=== PATIENT | male | born 1945 | race Caucasian/White ===

== ENCOUNTER 2019-12-19 12:30 | Outpatient (CLI) | payer MEDICARE, OTHER, SELFPAY ==
--- NOTE | 2019-12-19 12:44 | XR_ITS ---
WS: [id number] XR knee RT 3V* [id number] REASON FOR EXAM: RT KNEE PAIN FINDINGS: The meniscal spaces are normal bilaterally. The patella shows mild spurring. There is a bipartite patella present. The patella tibial space is well maintained. The patella tibial articulation normal. There is arteriosclerotic changes of the popliteal arteries. XR/XR knee RT 3V* [id number] IMPRESSION: Small bipartite patella. Degenerate changes off the patella. Heavy arteriosclerotic changes of the popliteal arteries.
== END 2019-12-19 12:31 | disposition home or self-care (01) ==
LOC: RAD 12:37
PROVIDERS: Family Provider Family Medicine; PCP Family Medicine; Visit Provider Orthopaedic Surgery
DX: M17.11 Unilateral primary osteoarthritis, right knee (principal); I70.201 Unspecified atherosclerosis of native arteries of extremities, right leg; Q74.1 Congenital malformation of knee; M25.561 Pain in right knee
CPT/HCPCS: 73562

== ENCOUNTER 2020-03-11 06:08 | Day surgery (SDC) | payer MEDICARE, OTHER, SELFPAY ==
[2020-03-07 09:13] VITALS: BMI 43.4
--- NOTE | 2020-03-07 09:20 | ECG_ITS ---
Measurements Intervals [place] Rate: 71 P: PA: 0 QRS: 5 QRSD: 84 T: 48 QT: 360 QTc: 391 ATRIAL FIBRILLATION LOW QRS VOLTAGE IN PRECORDIAL LEADS [QRS DEFLECTION < 1.0 mV IN CHEST LEADS] Compared to ECG 10/30/2018 09:37:34 Low QRS voltage now present Electronically Signed On 03-07-2020 18:31:24 CDT by Trina Astorga M.D. [email or web address]
--- NOTE | 2020-03-07 09:43 | P.ANESASSM_ITS ---
Pre-Anesthetic Assessment Pre-Anesthetic Assessment: Height/Weight: Height 1.75 m Weight 133.356 kg Preop Diagnosis: Bleeding per rectum Proposed Procedure: Operation Date: 03/11/20 07:00 Proposed Procedures p EGD/COLONOSCOPY [id number] 16584 35290 K21.9 Z86.010 K64.9(Not Applicable) - Magen Souza MD s Colonoscopy(Not Applicable) - MD ofelia Herron Exam Under Anesthesia(Not Applicable) - Magen Souza MD s Hemorroidectomy(Not Applicable) - Magen Souza MD Familial anesthetic complications: versed made me climb the artis Social: Social History: No alcohol and No tobacco Exam: Pre-Anes Outpt Exam: alert, oriented x 3, clear to auscultation bilaterally and regular rate & rhythm Airway: Cervical ROM: WNL MP: 4 Dentition: Full Pulmonary: Pulmonary: None reported CV/HEM: CV/HEM: Afib (on xarelto) and HTN : Comments: Patient has been retaining fluid Metabolic: Metabolic: Morbid obesity Anesthetic Plan: ASA status: 2 Anesthesia: General Risk of > 500 ml blood loss (7ml/kg in children): No PFSH Anesthesia PFSH: Medical History A-fib Hyperlipidemia Hypertension Seasonal allergies Surgical History History of appendectomy History of colonoscopy with polypectomy History of rotator cuff surgery Family History (Updated 02/27/20 @ 13:39 by Xochitl Harris RN) Father Cancer colon cancer Brother Cancer colon cancer Denies family history of Anesthesia complication Bleeding disorder Social History Smoking and tobacco status: current some day smoker cigars Cigar details: very very rare Alcohol intake: never History of recent travel: No Data Anesthesia Cardiac Studies: No Data to Display
[2020-03-11 06:23] VITALS: BP 161/85; PULSE 84; RESP 16; TEMP 36.6; O2SAT 94
--- NOTE | 2020-03-11 06:37 | W.PM.OPSUD ---
Surgery/Procedure H&P Update DATE OF PROCEDURE: March 11, 2020 DATE H&P PERFORMED: 03/07/20 H&P UPDATE INFORMATION: I have reviewed H&P completed within last 30 days, I have examined patient prior to procedure and No changes to prior documentation PREOP DIAGNOSIS: Bleeding per rectum PRIMARY INDICATION FOR PROCEDURE: The same PLANNED PROCEDURE: Operation Date: 03/11/20 07:45 Proposed Procedures p EGD/COLONOSCOPY 34833 31094 86437 09000 K21.9 Z86.010 K64.9(Not Applicable) - Magen Souza MD s Colonoscopy(Not Applicable) - Magen Souza MD s Exam Under Anesthesia(Not Applicable) - Magen Souza MD s Hemorroidectomy(Not Applicable) - Magen Souza MD
[2020-03-11] MEDS: sodium chloride 0.9% 1,000 ML 30 ML IV (06:54)
--- NOTE | 2020-03-11 07:16 | SUR.OPER ---
clip placed at bx site in the esophageal body
[2020-03-11] MEDS: ceFOXitin 2,000 MG in sodium chloride 0.9% (plus) 50 ML 100 MG IV (07:20)
--- NOTE | 2020-03-11 08:30 | P.OP_ITS ---
Operative Report Date of procedure: March 11, 2020 Pre-op Diagnosis: Bleeding per rectum Post-op diagnosis: other (Proximal gastritis and multiple gastric polyps) Post-op Findings: Proximal gastritis and multiple gastric polyps Anterolateral anal polyp(polypoidal lesion measures about 2 x 4 cm) Left lower lateral hemorrhoid Procedure Done: Diagnostic EGD with biopsy Colonoscopy with biopsy Examination under anesthesia and left lower lateral hemorrhoidectomy Specimens removed/disposition: Gastric polyps Anal polypoidal mass Left lower lateral hemorrhoid Surgeon: Magen Souza Cafeteria Aide: Surgical techs A[facility] surgery and GI Baldomero chief ophthalmic technician Circulating nurses [facility] surgery/[facility] GI Anesthesia: General (leave manager Emelina) Estimated blood loss (mL): 10 Condition: stable Disposition: same day Procedure: Patient was identified in the holding area, was taken to the OR placed first in supine position, timeout was done verifying the patient's name, date of , and procedure, all were in agreement. Patient was then intubated by the anesthesia provider, patient was placed in left lateral position after a bite block was placed in the mouth,all pressure points were padded, started by introducing the EGD via the mouth under direct visualization, the patient was continuously monitored via property insurance claims examiner, I was able to assess the esophagus stomach and duodenum till the second part, mild GERD was noticed at the GE junction. GE junction at 40 cm from the incisors, multiple proximal gastric polyps were noticed and biopsy was done using hot snare and hot biopsy forceps, gastritis was noticed as well in the same region, the rest of the examination all the way to the second part of the duodenum was unremarkable. I elected to use carbon dioxide The scope was retrieved under direct visualization and gas was deflated. Following that a digital rectal examination was done that showed a prominent left lower lateral hemorrhoid and a smaller right lower lateral hemorrhoid, the colonoscopy was then introduced via the anus under direct visualization, all the way to the cecum, prep of the colon was appropriate, there were no polyps identified or masses or diverticular disease or strictures except at the anal lesion anteriorly was found to have polypoidal mass that hot snare was applied to remove it, the scope was then retrieved back ,time for withdrawal exceeded 10 minutes, gas was deflated on the way out. Retroflex was done at the end showing no abnormalities of the anal canal other than mentioned above. Attention was deviated to the examination under anesthesia, prep and drape of the perianal area was done under the usual sterile technique Anoscope was then introduced I was able to identify the internal and external left lower lateral hemorrhoid and a smaller right lower lateral , I placed a wet 4 x 4 inside the anal canal to prevent stools from encroaching on the wound site, that was taken out at the end of the procedure. I did apply a hemostat at the origin of the hemorrhoidal tissue, onto the left lower lateral hemorrhoid,using harmonic scalpel device for dissection safeguarding the external anal sphincter after that I was able to deliver the specimen to the circulating nurse hemostasis was achieved , and running 2-0 chromic catgut suture was applied to approximate the edges of the hemorrh oidectomy sites, that was done after thorough irrigation of the wound with warm normal saline. At that point after removal of the 4 x 4'sx1, I noticed at this point that there is residual remnants of the polypoidal mass that I had to excise more using the harmonic scalpel, following by that it was not feasible to apply sutures for hemostasis so I elected to perform a flex sigmoidoscopy using the colonoscopy and hemostasis was achieved using electrocautery and an Endo Clip resolution x1 was applied.Suction irrigation was performed I applied a piece of Xeroform impregnated w lidocaine 2% jelly at the site of the wound and a piece of Surgicel both were rolled up as a Cigar like and and 2- 0 silk stitch was applied at the end that faces the exit of the anus as it will be easier to pull out later on, followed by 4 x 4 application and ABD .,a surgical pants was then placed to hold the dressing in place. Count was completed at the end of the procedure, patient was then extubated and was taken to the recovery room in stable condition. Patient tolerated the procedure I was present for the whole entire procedure
[2020-03-11 08:44] VITALS: BP 182/89; PULSE 90; RESP 16; TEMP 36.1; O2SAT 94
[2020-03-11 08:50] VITALS: BP 197/97; PULSE 85; RESP 20; O2SAT 95
[2020-03-11 08:55] VITALS: BP 142/80; PULSE 90; RESP 18; TEMP 36.2; O2SAT 90
[2020-03-11 09:00] VITALS: BP 135/88; PULSE 88; RESP 15; TEMP 36.2; O2SAT 94
[2020-03-11 09:15] VITALS: BP 155/89; PULSE 85; RESP 16; TEMP 36.6; O2SAT 93
--- NOTE | 2020-03-11 09:30 | SUR.PHASEII ---
904 Patient back from pacu and requesting to get to go to bathroom to have a bowel movement and to urinate,assisted up to bedside commode with help of pacu nurse,,call light at bedside and encouraged to call as needed,pt moaning and states that he is having stomach cramps and refusing pain rx at present 929 patient remains on bedside commode and refusing any drink or assistance
== END 2020-03-11 10:35 | disposition home or self-care (01) ==
PROVIDERS: PCP Family Medicine; Visit Provider Surgery
PROC: 0DJ08ZZ Inspection of Upper Intestinal Tract, Via Natural or Artificial Opening Endoscopic (ICD-10-PCS; CPT 43235; principal; 2020-03-11 07:45)
PROC: 0DJD8ZZ Inspection of Lower Intestinal Tract, Via Natural or Artificial Opening Endoscopic (ICD-10-PCS; CPT 45378; 2020-03-11 07:45)
PROC: (CPT 46250; 2020-03-11 07:45)
PROC: (CPT 46250; 2020-03-11 07:45)
DX: K62.5 Hemorrhage of anus and rectum (principal); K29.70 Gastritis, unspecified, without bleeding; K31.7 Polyp of stomach and duodenum; K64.4 Residual hemorrhoidal skin tags; I48.91 Unspecified atrial fibrillation; I10 Essential (primary) hypertension; E66.01 Morbid (severe) obesity due to excess calories; Z68.41 Body mass index [BMI] 40.0-44.9, adult; Z79.01 Long term (current) use of anticoagulants; E78.5 Hyperlipidemia, unspecified
CPT/HCPCS: 46250; 12345; 43251; 45385; 88304; 88305; 93005; 96365; C9290; J0131; J0330; J0694; J1100; J2001; J2370; J2405; J2704; J3010; J3490; J7030

== ENCOUNTER 2020-03-12 07:46 | Outpatient (CLI) | payer MEDICARE, OTHER, SELFPAY ==
--- NOTE | 2020-03-12 07:53 | USCV_ITS ---
JulioLou brownn Age: 75 Gender: M : 1945 Exam Date: 03/12/2020 08:04 Ordering Phys: Idris Ma MD Technologist: Jourdan Luna Exam Location: [facility] [place] Indication: EDEMA, ATRIAL FIBRILATION, ESSENTIAL HYPERTENSION BP: / HR: 97 Rhythm: Atrial fibrillation Technical Quality: Poor MEASUREMENTS (Male / Female) Normal Values 2D ECHO LV Diastolic Diameter PLAX 3.3 cm 4.2 - 5.9 / 3.9 - 5.3 cm LV Systolic Diameter PLAX 2.8 cm IVS Diastolic Thickness 1.4 cm 0.6 - 1.0 / 0.6 - 0.9 cm IVS Systolic Thickness 1.7 cm LVPW Diastolic Thickness 1.3 cm 0.6 - 1.0 / 0.6 - 0.9 cm LVPW Systolic Thickness 1.6 cm LVOT Diameter 2.1 cm LV Ejection Fraction 2D Teich 32.8 % LV Ejection Fraction MOD 2C 70.1 % LV Ejection Fraction 2C AL 69.9 % LA Diameter 5.4 cm LA Width 5.6 cm LA Height 6.4 cm RA Width 4.2 cm RA Height 5.9 cm M-MODE LV Diastolic Diameter MM 5.2 cm 4.2 - 5.9 / 3.9 - 5.3 cm LV Systolic Diameter MM 2.9 cm LV Ejection Fraction MM Teich 74.5 % IVS Diastolic Thickness MM 1.2 cm 0.6 - 1.0 / 0.6 - 0.9 cm IVS Systolic Thickness MM 2.1 cm LVPW Diastolic Thickness MM 1.2 cm 0.6 - 1.0 / 0.6 - 0.9 cm LVPW Systolic Thickness MM 1.8 cm RV Diastolic Diameter MM 1.7 cm Aortic Annulus Diameter 4.2 cm LA Ao Ratio MM 1.3 MV E Point Septal Separation 0.6 cm DOPPLER AV Peak Velocity 118.0 cm/s LVOT Peak Velocity 94.0 cm/s AV Area Cont Eq vti 3.0 cm squared AV Area Cont Eq pk 2.8 cm squared MV Area PHT 5.0 cm squared Mitral E to A Ratio 2.8 MV E' Velocity 15.0 cm/s Mitral E to MV E' Ratio 9.9 Mitral E to LV E' Lateral Ratio 7.4 Mitral E to LV E' Septal Ratio 14.8 TR Peak Velocity 228.0 cm/s TR Peak Gradient 20.9 mmHg TV Peak E Velocity 129.0 cm/s Right Atrial Pressure 3.0 mmHg Pulmonary Artery Systolic Pressu 23.8 mmHg PV Peak Velocity 87.0 cm/s FINDINGS Left Ventricle Left ventricular cavity not well visualized. Normal left ventricular size, systolic function and wall thickness, with no regional wall motion abnormalities. Rhythm precludes evaluation of diastolic function. Left ventricular ejection fraction is estimated at 60 %. Right Ventricle Normal right ventricular size and systolic function. Normal right ventricular systolic pressure. Right Atrium Mildly increased right atrial size. Left Atrium Mildly increased left atrial size. Mitral Valve Mitral valve not well visualized. Structurally normal mitral valve. Mild mitral valve regurgitation. Aortic Valve Aortic valve not well visualized. No aortic valve regurgitation. No aortic valve stenosis. Tricuspid Valve Structurally normal tricuspid valve. Tricuspid valve not well visualized. Trace tricuspid valve regurgitation. Pulmonic Valve Pulmonic valve not well visualized. Pericardium Normal pericardium without effusion. Aorta Normal ascending aorta dimension. CONCLUSIONS Left ventricular cavity not well visualized. Normal left ventricular size, systolic function and wall thickness, with no regional wall motion abnormalities. Rhythm precludes evaluation of diastolic function. Left ventricular ejection fraction is estimated at 60 %. Mildly increased right atrial size. Mildly increased left atrial size. Mitral valve not well visualized. Structurally normal mitral valve. Mild mitral valve regurgitation. From the previous echo dictated 02/21/2014, there has been no change. Dr. Saravanan Carroll MD (Electronically Signed) Final Date: 12 Mar 2020 09:28 S
== END 2020-03-12 07:47 | disposition home or self-care (01) ==
LOC: RAD 07:50
PROVIDERS: PCP Family Medicine; Visit Provider Family Medicine
DX: R60.9 Edema, unspecified (principal); I10 Essential (primary) hypertension; I48.91 Unspecified atrial fibrillation; I34.0 Nonrheumatic mitral (valve) insufficiency
CPT/HCPCS: 93306

== ENCOUNTER 2020-03-13 13:50 | Outpatient (CLI) | payer MEDICARE, OTHER, SELFPAY ==
--- NOTE | 2020-03-13 13:56 | CT_ITS ---
WS: [id number] CT CHEST TECHNIQUE: Noncontrast CT of the chest with coronal and sagittal reformatted images. CLINICAL INFORMATION: EDEMA, ATRIAL FIBRILATION, ESSENTIAL HYPERTENSION COMPARISON: None. DLP: 1117.[address] scans at [facility] use at least one of these dose optimization techniques: automat ed exposure control; mA and/or kV adjustment per patient size (includes targeted exams where dose is matched to clinical indication); or iterative reconstruction. FINDINGS: Mild chronic emphysematous changes. No acute pulmonary infiltrates. Slight hazy subsegmental atelecta sis in the right lower lobe. No consolidation or pleural fluid. No other suspicious pulmonary parench ymal abnormalities. Mild aortic calcification. Coronary calcification. No mediastinal or hilar lymphadenopathy. No axilla ry lymphadenopathy. Small low-attenuation lesion right adrenal gland most likely benign adenoma measu ring 11 mm. Left adrenal gland is normal. Vascular calcification. Normal GE junction. Multiple partia lly evaluated hepatic cysts the largest in the dome the liver measuring 2.2 CM. Small gallstones in t he gallbladder extending to the gallbladder neck. Gallbladder can be further evaluated with ultrasoun d. No visualized gallbladder wall thickening or fluid. Moderate spondylitic changes thoracic spine with mild thoracic curve. Compression fracture L1 vertebr al body with anterior wedging and prior vertebroplasty changes. Mild chronic retropulsion of the pos terior superior cortex with mild central canal stenosis. CT/CT chest wo con [id number] IMPRESSION: 1. Mild chronic emphysematous changes. No acute pulmonary infiltrates. 2. Subsegmental atelectasis in right lower lobe along the fissure. 3. No pleural fluid. 4. No mediastinal or hilar lymphadenopathy. 5. Vascular calcification including coronary. 6. Cholelithiasis with gallstones extend to the gallbladder neck. Recommend fu rther evaluation with ultrasound. 7. Partially visualized low-attenuation lesions in the liver some too small to characterize but most consistent with hepatic cysts. 8. Incidental 11 mm adrenal adenoma.
== END 2020-03-13 13:51 | disposition home or self-care (01) ==
LOC: RADWPI 13:54
PROVIDERS: PCP Family Medicine; Visit Provider Family Medicine
DX: R60.9 Edema, unspecified (principal); I10 Essential (primary) hypertension; J43.8 Other emphysema; J98.11 Atelectasis; I25.10 Atherosclerotic heart disease of native coronary artery without angina pectoris; K80.20 Calculus of gallbladder without cholecystitis without obstruction; D35.01 Benign neoplasm of right adrenal gland; I48.91 Unspecified atrial fibrillation
CPT/HCPCS: 71250

== ENCOUNTER 2020-09-15 10:32 | Outpatient (CLI) | payer MEDICARE, OTHER, SELFPAY ==
--- NOTE | 2020-09-15 10:50 | ECG_ITS ---
[facility] Test Date: 2020-09-15 Pat Name: Orin Elliott Department: Room: Gender: Male Roll Weigher: Naomy Majano : 1945 Requested By: Idris Saul Order Number: [id number] Maye MD: Beto Nowak M.D. Interpretive Statements NAME OF STUDY: LEXISCAN SESTAMIBI STRESS TEST INDICATION: [Chest Pain, ] Procedure: The baseline blood pressure was 124/92 mmHg with a heart rate of 72 bpm. The electrocardiogram showed atrial fibrillation with nonspecific ST-T wave changes. The Lexiscan was infused for a duration of 20 seconds. A total of 0.4 mg of Lexiscan was infused. The stress phase was continued for a total of 5 minutes. Heart rate at end of stress phase was 81 bpm, with a blood pressure 158/95 mmHg. The EKG at the peak infusion revealed atrial fibrillation with no significant ST-T wave changes. Sestamibi was injected 20 seconds after Lexiscan infusion. Blood pressure at the end of recovery phase was 139/89 mmHg with a heart rate of 83 bpm. No significant new EKG changes during recovery phase. Conclusion: 1. Normal EKG response to Lexiscan infusion. 2. No Lexiscan induced chest pain or cardiac arrhythmia. 3. Normal blood pressure and heart rate response. 4. Sestamibi/sestamibi perfusion scan pending; see separate report. Electronically Signed On 09-18-2020 19:07:42 FORESTRY SUPPORT SPECIALIST by Beto Nowak M.D. [email or web address]
[2020-09-15 10:51] VITALS: BMI 43.5
--- NOTE | 2020-09-15 10:51 | NMCV_ITS ---
NM jacques perf SPECT r/s* [id number] Orin Elliott Age: 75 Gender: M : 1945 Exam Date: 09/15/2020 11:31 Ordering Phys: Idris Ma MD Technologist: LANDON Goldsmith Exam Location: [facility] Indications: CHEST PAIN STRESS TEST [facility] IMAGE PROTOCOL Rest/Stress 1 Lexiscan Day Radiopharmaceutical Dose (mCi) Administration Site Administered by Rest: Tc-99m 11.0 IV LANDON Goldsmith Sestamibi Stress:Tc-99m 33.0 IV LANDON Mckeon Sestamibi Rest: 15-Sep-2020 60 Discovery 630 Stress: 15-Sep-2020 30 Discovery 630 0.4mg Lexiscan. Supine position only as patient was unable to lay prone. SPECT RESULTS Technical Quality: Excellent Raw Data Analysis: Normal Image Corrections: No attenuation or motion correction applied Summed Stress Score: 0 Summed Rest Score: 0 Summed Difference Score: 0 PERFUSION FINDINGS Normal myocardial perfusion with no evidence of ischemia. FUNCTIONAL RESULTS (calculated via Gated SPECT) Stress Image LV EF (%): 72 Stress EDV (mL):107 TID: 1.07 Stress ESV (mL):30 FUNCTIONAL FINDINGS: There is normal left ventricular systolic function. IMPRESSIONS 1. Myocardial perfusion imaging is normal without evidence of ischemia. 2. LV systolic function is normal with EF of 72%. Beto Nowak MD (Electronically Signed) Final Date: 16 September 2020 10:28 S
[2020-09-15 12:27] VITALS: BP 142/93; PULSE 80
[2020-09-15] MEDS: regadenoson 0.4 Mg/5 ml Syringe IVP (12:27)
== END 2020-09-15 10:33 | disposition home or self-care (01) ==
LOC: RAD 10:36
PROVIDERS: PCP Family Medicine; Visit Provider Family Medicine
DX: R07.9 Chest pain, unspecified (principal); I10 Essential (primary) hypertension
CPT/HCPCS: 78452; 93017; A9500; J2785

== ENCOUNTER → 2020-09-25 12:32 | Outpatient (BNVA) | payer MEDICARE, OTHER, SELFPAY | PROVIDERS: PCP Family Medicine; Referring Provider Family Medicine; Visit Provider Anesthesiology Pain Medicine | DX: M54.9 Dorsalgia, unspecified (principal); M54.16 Radiculopathy, lumbar region; M51.36 Other intervertebral disc degeneration, lumbar region; M54.2 Cervicalgia | CPT/HCPCS: 99205 ==

== ENCOUNTER → 2020-10-01 13:01 | Outpatient (BNVA) | payer MEDICARE, OTHER, SELFPAY | PROVIDERS: PCP Family Medicine; Visit Provider Anesthesiology Pain Medicine | DX: M47.816 Spondylosis without myelopathy or radiculopathy, lumbar region (principal); M54.9 Dorsalgia, unspecified | CPT/HCPCS: 64635; 64636; J1030 ==

== ENCOUNTER → 2020-10-14 12:45 | Outpatient (BNVA) | payer MEDICARE, OTHER, SELFPAY | PROVIDERS: PCP Family Medicine; Visit Provider Anesthesiology Pain Medicine | DX: M47.816 Spondylosis without myelopathy or radiculopathy, lumbar region (principal); M54.9 Dorsalgia, unspecified | CPT/HCPCS: 64635; 64636; J1030 ==

== ENCOUNTER → 2020-10-29 13:20 | Outpatient (BNVA) | payer MEDICARE, OTHER, SELFPAY | PROVIDERS: PCP Family Medicine; Visit Provider Anesthesiology Pain Medicine | DX: M54.9 Dorsalgia, unspecified (principal); M54.16 Radiculopathy, lumbar region; M51.36 Other intervertebral disc degeneration, lumbar region; M54.2 Cervicalgia | CPT/HCPCS: 99213; 99214 ==

== ENCOUNTER → 2020-12-30 12:46 | Outpatient (BNVA) | payer MEDICARE, OTHER, SELFPAY | PROVIDERS: PCP Family Medicine; Visit Provider Anesthesiology Pain Medicine | DX: M47.812 Spondylosis without myelopathy or radiculopathy, cervical region (principal) | CPT/HCPCS: 64490; 64491; 64492; J3490 ==

== ENCOUNTER → 2021-01-13 08:52 | Outpatient (BNVA) | payer MEDICARE, OTHER, SELFPAY | PROVIDERS: PCP Family Medicine; Visit Provider Anesthesiology Pain Medicine | DX: G89.29 Other chronic pain (principal); M54.2 Cervicalgia; M54.9 Dorsalgia, unspecified; M54.16 Radiculopathy, lumbar region; M51.36 Other intervertebral disc degeneration, lumbar region; M25.511 Pain in right shoulder | CPT/HCPCS: 99214 ==

== ENCOUNTER → 2021-07-23 09:45 | Outpatient (BNVA) | payer MEDICARE, OTHER, SELFPAY | PROVIDERS: PCP Family Medicine; Visit Provider Anesthesiology Pain Medicine | DX: G89.29 Other chronic pain (principal); M54.16 Radiculopathy, lumbar region; M51.36 Other intervertebral disc degeneration, lumbar region; M54.2 Cervicalgia; R20.2 Paresthesia of skin; I10 Essential (primary) hypertension; Z87.891 Personal history of nicotine dependence | CPT/HCPCS: 99214 ==

== ENCOUNTER → 2021-09-02 10:19 | Outpatient (BNVA) | payer MEDICARE, OTHER, SELFPAY | PROVIDERS: PCP Family Medicine; Visit Provider Anesthesiology Pain Medicine | DX: M48.062 Spinal stenosis, lumbar region with neurogenic claudication (principal); M54.16 Radiculopathy, lumbar region; M51.36 Other intervertebral disc degeneration, lumbar region; M48.02 Spinal stenosis, cervical region; M47.812 Spondylosis without myelopathy or radiculopathy, cervical region; Z87.891 Personal history of nicotine dependence | CPT/HCPCS: 99214 ==

== ENCOUNTER → 2021-09-29 09:22 | Outpatient (BNVA) | payer MEDICARE, OTHER, SELFPAY | PROVIDERS: PCP Family Medicine; Referring Provider Anesthesiology Pain Medicine; Visit Provider Physician Assistant | DX: M54.16 Radiculopathy, lumbar region (principal) | CPT/HCPCS: 72110 ==

== ENCOUNTER → 2021-10-19 12:19 | Outpatient (BNVA) | payer MEDICARE, OTHER, SELFPAY | PROVIDERS: PCP Family Medicine; Visit Provider Anesthesiology Pain Medicine | DX: M47.816 Spondylosis without myelopathy or radiculopathy, lumbar region (principal) | CPT/HCPCS: 64635; 64636; J1030 ==

== ENCOUNTER → 2021-10-29 09:39 | Outpatient (BNVA) | payer MEDICARE, OTHER, SELFPAY | PROVIDERS: PCP Family Medicine; Visit Provider Anesthesiology Pain Medicine | DX: G89.29 Other chronic pain (principal); M79.18 Myalgia, other site; M48.062 Spinal stenosis, lumbar region with neurogenic claudication; M54.16 Radiculopathy, lumbar region; M51.36 Other intervertebral disc degeneration, lumbar region; M47.816 Spondylosis without myelopathy or radiculopathy, lumbar region; M54.2 Cervicalgia | CPT/HCPCS: 20553; 99214; J1030; J3490 ==

== ENCOUNTER 2021-11-08 08:21 | Outpatient (CLI) | payer MEDICARE, OTHER, SELFPAY ==
[2021-11-08 08:40] VITALS: BP 150/102; PULSE 75; RESP 18; TEMP 36.5; O2SAT 97; BMI 42.0
[2021-11-08 09:18] VITALS: BP 149/94; PULSE 53; RESP 18; O2SAT 97
[2021-11-08 10:05] VITALS: BP 147/104; PULSE 63; RESP 18; TEMP 36.6; O2SAT 97
== END 2021-11-08 08:22 | disposition home or self-care (01) ==
PROVIDERS: PCP Family Medicine; Visit Provider Family Medicine
DX: U07.1 COVID-19 (principal)
CPT/HCPCS: 96365

== ENCOUNTER 2021-12-15 12:00 | Outpatient (CLI) | payer MEDICARE, OTHER, SELFPAY | END 2021-12-15 12:01 | disposition home or self-care (01) | LOC: SLEEP 12-16 09:50 | PROVIDERS: PCP Family Medicine; Visit Provider Family Medicine | DX: R40.0 Somnolence (principal); G47.33 Obstructive sleep apnea (adult) (pediatric) | CPT/HCPCS: G0399 ==

== ENCOUNTER → 2022-01-18 11:07 | Outpatient (BNVA) | payer MEDICARE, OTHER, SELFPAY | PROVIDERS: PCP Family Medicine; Visit Provider Anesthesiology Pain Medicine | DX: G89.29 Other chronic pain (principal); M47.812 Spondylosis without myelopathy or radiculopathy, cervical region; M48.062 Spinal stenosis, lumbar region with neurogenic claudication; M54.16 Radiculopathy, lumbar region; M51.36 Other intervertebral disc degeneration, lumbar region; M47.816 Spondylosis without myelopathy or radiculopathy, lumbar region; Z87.891 Personal history of nicotine dependence; Z79.891 Long term (current) use of opiate analgesic | CPT/HCPCS: 99214 ==

== ENCOUNTER → 2022-02-15 10:06 | Outpatient (BNVA) | payer MEDICARE, OTHER, SELFPAY | PROVIDERS: PCP Family Medicine; Visit Provider Anesthesiology Pain Medicine | DX: G89.29 Other chronic pain (principal); M48.062 Spinal stenosis, lumbar region with neurogenic claudication; M54.16 Radiculopathy, lumbar region; M51.36 Other intervertebral disc degeneration, lumbar region; M47.816 Spondylosis without myelopathy or radiculopathy, lumbar region; M54.2 Cervicalgia; M79.604 Pain in right leg; M79.605 Pain in left leg; Z79.891 Long term (current) use of opiate analgesic; Z87.891 Personal history of nicotine dependence | CPT/HCPCS: 99214 ==

== ENCOUNTER 2022-04-07 12:24 | Outpatient (CLI) | payer MEDICARE, OTHER, SELFPAY ==
--- NOTE | 2022-04-07 13:00 | MR_ITS ---
WS: [id number] MRI CERVICAL SPINE NONCONTRAST HISTORY: M54.12 - Radiculopathy, cervical region COMPARISON: 06/08/2019 Technique: Multiplanar, multisequence noncontrast imaging of the cervical spine. Mild increase in the cervical lordosis since the prior study. C3 retrolisthesis by 3 mm. Less than 2 mm anterolisthesis of C5. No fractures or marrow edema. Signal within the cervical cord is normal. Visualized posterior fossa is unremarkable. Craniocervical junction, C1 and C2 relationship, odontoid process and soft tissues are normal. C2-C3: Tiny central disc protrusion similar to the prior study. Mild bilateral foraminal narrowing du e to facet disease and osteophytes. C3-C4: Mild diffuse osteophytic ridging and disc bulge. Moderate bilateral facet joint arthritis. Mod erate LEFT and mild foraminal stenosis. No interval change. C4-C5: Mild disc bulging and facet arthritis. Mild bilateral facet joint arthritis resulting in mild LEFT foraminal stenosis. No change. C5-C6: Moderate diffuse annular disc bulging with ligamentum flavum and facet arthritis. Mild bilater al foraminal narrowing, RIGHT greater than LEFT is unchanged. C6-C7: Mild disc bulging with a central disc protrusion. Mild bilateral foraminal stenosis. Mild cent ral and bilateral foraminal stenosis. C7-T1: Mild annular disc bulge with a RIGHT paracentral disc protrusion. Mild osteophytic ridging. Mi ld narrowing of the LEFT foramen due to facet and osteophyte disease. Normal RIGHT foramen. Paraspinal soft tissues are negative. MR/MR cervical spin wo con* [id number] IMPRESSION: 1. Very similar appearance to the cervical spine and disc spaces since 06/08/20 19. No significant progression of stenoses. 2. Stable 3 mm retrolisthesis of C3. 3. Moderate LEFT and mild RIGHT foraminal stenosis at C3-4. 4. Mild central and bilateral foraminal stenosis at C6-7. 5. Mild LEFT foraminal stenosis at C4-5 and C7-T1. 6. Mild bilateral foraminal stenosis at C2-3.
== END 2022-04-07 12:25 | disposition home or self-care (01) ==
LOC: RAD 12:25
PROVIDERS: PCP Family Medicine; Visit Provider Anesthesiology Pain Medicine
DX: M54.12 Radiculopathy, cervical region (principal); M48.02 Spinal stenosis, cervical region; M48.062 Spinal stenosis, lumbar region with neurogenic claudication; M47.896 Other spondylosis, lumbar region
CPT/HCPCS: 72141; 72148

== ENCOUNTER 2022-04-07 12:24 | Outpatient (CLI) | payer MEDICARE, OTHER, SELFPAY ==
--- NOTE | 2022-04-07 13:45 | MR_ITS ---
WS: [id number] MRI LUMBAR SPINE NONCONTRAST HISTORY: M48.062 - Spinal stenosis, lumbar region with neurogenic ... COMPARISON: 04/16/2019 TECHNIQUE: Sagittal and axial multisequence imaging is submitted. Moderate degenerative LEFT curvature of the lumbar spine. L1 vertebroplasty with mild anterior compression. Moderate disc space narrowing at L2-3 and severe at L5-S1. L5 anterolisthesis by 6.4 mm similar to the prior exam. There is a small amount of reactive m arrow edema in the adjacent RIGHT lateral endplates of L3 and L4. No acute fractures. Conus terminates normally at L1-2 disc level. T12-L1: Mild annular disc bulging slightly greatest to the LEFT. Mild LEFT foraminal narrowing. Super ior posterior endplate of L1 is posteriorly displaced towards the LEFT lateral thecal sac and foramen . Very similar to the prior study with no progression of stenosis. Mild subarticular recess narrowing . L1-L2: Diffuse annular disc bulging with effacement of the ventral thecal sac. Bilateral subarticular recess narrowing is mild but greatest on the LEFT. Moderate LEFT foraminal stenosis and mild on the RIGHT. L2-L3: Diffuse osteophytic ridging and annular disc bulging encroaching upon the ventral thecal sac a nd subarticular recesses. Mild disc or osteophyte encroachment upon the traversing RIGHT L3 nerve rosy t. Mild central, bilateral subarticular recess and foraminal stenosis. Slightly greater stenosis on t he RIGHT. L3-L4: Diffuse mild annular disc bulge with facet and ligamentum flavum hypertrophy. Very minimal enc roachment into the subarticular recesses. Moderate RIGHT foraminal stenosis due to disc disease. Mild LEFT foraminal stenosis. L4-L5: Mild annular disc bulge with moderate ligamentum flavum hypertrophy and facet arthritis. Encro achment into the central canal by facet disease. Mild central and bilateral foraminal stenosis. Osteo phyte encroaching upon the exiting L4 nerve root does not appear quite as apparent on today's study a s on the prior study. L5-S1: L5 anterolisthesis with deformity of the thecal sac. No central stenosis. There is complete ef facement of fat in the LEFT foramen. Osteophyte and disc disease causing a severe LEFT foraminal sten osis and mild on the RIGHT. Marked bilateral facet joint arthritis. Paravertebral soft tissues negative for acute process. Mild atherosclerotic changes within the visual ized aorta. MR/MR lumbar spine wo con* [id number] IMPRESSION: 1. Advanced degenerative disc disease and facet arthritis throughout the lumba r spine with mild degenerative curvature to the LEFT of the lumbar spine. 2. Grade 1 anterolisthesis of L5 with severe disc space narrowing at L5-S1. 3. Prior vertebroplasty at L1. 4. No acute lumbar spine fracture. 5. Severe LEFT L5-S1 foraminal stenosis with marked encroachment upon the exit ing L5 nerve root. Similar to the prior study. Mild stenosis on the RIGHT. 6. Moderate LEFT foraminal stenosis at L1-2 with mild RIGHT foraminal stenosi s and mild bilateral subarticular recess stenosis. 7. Moderate RIGHT foraminal stenosis at L3-4 with disc contact on the exiting RIGHT L3 nerve root. Mild progression since the prior study. 8. Mild central and bilateral foraminal stenosis at L4-5. 9. Mild disc osteophyte encroachment upon the traversing RIGHT L3 nerve root. Similar to the prior study. Otherwise mild central and bilateral subarticular a nd foraminal stenosis at L2-3.
== END 2022-04-07 12:25 | disposition home or self-care (01) ==
LOC: RAD 12:25
PROVIDERS: PCP Family Medicine; Visit Provider Anesthesiology Pain Medicine
DX: M48.062 Spinal stenosis, lumbar region with neurogenic claudication (principal); M47.896 Other spondylosis, lumbar region
CPT/HCPCS: 72148

== ENCOUNTER → 2022-04-26 15:03 | Outpatient (BNVA) | payer MEDICARE, OTHER, SELFPAY | PROVIDERS: PCP Family Medicine; Visit Provider Family Medicine | DX: G47.33 Obstructive sleep apnea (adult) (pediatric) (principal); I48.91 Unspecified atrial fibrillation; I10 Essential (primary) hypertension | CPT/HCPCS: 80053; 85025 ==

== ENCOUNTER → 2022-05-13 08:41 | Outpatient (BNVA) | payer MEDICARE, OTHER, SELFPAY | PROVIDERS: PCP Family Medicine; Visit Provider Family Medicine | DX: E87.5 Hyperkalemia (principal); I10 Essential (primary) hypertension | CPT/HCPCS: 84132 ==

== ENCOUNTER → 2022-06-22 13:15 | Outpatient (BNVA) | payer MEDICARE, OTHER, SELFPAY | PROVIDERS: PCP Family Medicine; Visit Provider Family Medicine | DX: D12.8 Benign neoplasm of rectum (principal); G47.33 Obstructive sleep apnea (adult) (pediatric); E87.6 Hypokalemia | CPT/HCPCS: 80048 ==

== ENCOUNTER → 2022-06-29 09:14 | Outpatient (BNVA) | payer MEDICARE, OTHER, SELFPAY | PROVIDERS: PCP Family Medicine; Visit Provider Surgery | DX: D12.8 Benign neoplasm of rectum (principal); Z98.890 Other specified postprocedural states | CPT/HCPCS: 99213 ==

== ENCOUNTER → 2022-07-13 09:45 | Outpatient (BNVA) | payer MEDICARE, OTHER, SELFPAY | PROVIDERS: PCP Family Medicine; Visit Provider Physician Assistant | DX: M47.816 Spondylosis without myelopathy or radiculopathy, lumbar region (principal); M48.062 Spinal stenosis, lumbar region with neurogenic claudication; M48.02 Spinal stenosis, cervical region | CPT/HCPCS: 99214 ==

== ENCOUNTER → 2022-07-20 09:56 | Outpatient (BNVA) | payer MEDICARE, OTHER, SELFPAY | PROVIDERS: PCP Family Medicine; Visit Provider Anesthesiology Pain Medicine | DX: G89.29 Other chronic pain (principal); M48.062 Spinal stenosis, lumbar region with neurogenic claudication; M54.16 Radiculopathy, lumbar region; M51.36 Other intervertebral disc degeneration, lumbar region; M47.816 Spondylosis without myelopathy or radiculopathy, lumbar region; M79.605 Pain in left leg; M79.604 Pain in right leg | CPT/HCPCS: 99214 ==

== ENCOUNTER → 2022-07-30 10:30 | Outpatient (BNVA) | payer MEDICARE, OTHER, SELFPAY | PROVIDERS: PCP Family Medicine; Visit Provider Family Medicine | DX: I10 Essential (primary) hypertension (principal); I48.20 Chronic atrial fibrillation, unspecified; E87.6 Hypokalemia | CPT/HCPCS: 80048 ==

== ENCOUNTER → 2022-08-19 09:41 | Outpatient (BNVA) | payer MEDICARE, OTHER, SELFPAY | PROVIDERS: PCP Family Medicine; Visit Provider Family Medicine | DX: E87.6 Hypokalemia (principal); J32.9 Chronic sinusitis, unspecified; I10 Essential (primary) hypertension | CPT/HCPCS: 80048 ==

== ENCOUNTER → 2022-10-06 14:29 | Outpatient (BNVA) | payer MEDICARE, OTHER, SELFPAY | PROVIDERS: PCP Family Medicine; Visit Provider Clinical Nurse Specialist Adult Health | DX: B34.9 Viral infection, unspecified (principal); J06.9 Acute upper respiratory infection, unspecified; U07.1 COVID-19 | CPT/HCPCS: 87400; 87426 ==

== ENCOUNTER → 2022-10-26 08:43 | Outpatient (BNVA) | payer MEDICARE, OTHER, SELFPAY | PROVIDERS: PCP Family Medicine; Visit Provider Anesthesiology Pain Medicine | DX: G89.29 Other chronic pain (principal); M48.062 Spinal stenosis, lumbar region with neurogenic claudication; M54.16 Radiculopathy, lumbar region; M51.36 Other intervertebral disc degeneration, lumbar region; M47.816 Spondylosis without myelopathy or radiculopathy, lumbar region; M79.604 Pain in right leg; M79.605 Pain in left leg | CPT/HCPCS: 99214 ==

== ENCOUNTER → 2022-12-16 13:26 | Outpatient (BNVA) | payer MEDICARE, OTHER, SELFPAY | PROVIDERS: PCP Family Medicine; Visit Provider Anesthesiology Pain Medicine | DX: G89.29 Other chronic pain (principal); M54.2 Cervicalgia; M54.16 Radiculopathy, lumbar region | CPT/HCPCS: 64635; 64636; J1030 ==

== ENCOUNTER → 2023-01-03 14:13 | Outpatient (BNVA) | payer MEDICARE, OTHER, SELFPAY | PROVIDERS: PCP Family Medicine; Visit Provider Anesthesiology Pain Medicine | DX: G89.29 Other chronic pain (principal); M54.2 Cervicalgia; M47.816 Spondylosis without myelopathy or radiculopathy, lumbar region | CPT/HCPCS: 64635; 64636; J1030 ==

== ENCOUNTER → 2023-01-06 08:35 | Outpatient (BNVA) | payer MEDICARE, OTHER, SELFPAY | PROVIDERS: PCP Family Medicine; Visit Provider Family Medicine | DX: I10 Essential (primary) hypertension (principal); E87.6 Hypokalemia; E78.5 Hyperlipidemia, unspecified | CPT/HCPCS: 80048; 80053; 80061; 85025 ==

== ENCOUNTER → 2023-01-20 09:23 | Outpatient (BNVA) | payer MEDICARE, OTHER, SELFPAY | PROVIDERS: PCP Family Medicine; Visit Provider Anesthesiology Pain Medicine | DX: G89.29 Other chronic pain (principal); M47.816 Spondylosis without myelopathy or radiculopathy, lumbar region; M54.16 Radiculopathy, lumbar region; M48.062 Spinal stenosis, lumbar region with neurogenic claudication; M51.36 Other intervertebral disc degeneration, lumbar region; M54.2 Cervicalgia | CPT/HCPCS: 99214 ==

== ENCOUNTER → 2023-02-02 11:13 | Outpatient (BNVA) | payer MEDICARE, OTHER, SELFPAY | PROVIDERS: PCP Family Medicine; Visit Provider Family Medicine | DX: Z20.822 Contact with and (suspected) exposure to COVID-19 (principal); J06.9 Acute upper respiratory infection, unspecified | CPT/HCPCS: 87426 ==

== ENCOUNTER 2023-03-11 06:00 | Outpatient (RCR) | payer MEDICARE, OTHER, SELFPAY | END 2023-03-16 23:59 | disposition home or self-care (01) | LOC: SPT 06:00 | PROVIDERS: PCP Family Medicine; Visit Provider Anesthesiology Pain Medicine | DX: M54.50 Low back pain, unspecified (principal); G89.29 Other chronic pain | CPT/HCPCS: 97110; 97162 ==

== ENCOUNTER 2023-03-17 06:00 | Outpatient (RCR) | payer MEDICARE, OTHER, SELFPAY | END 2023-04-15 23:59 | disposition home or self-care (01) | LOC: SPT 06:00 | PROVIDERS: PCP Family Medicine; Visit Provider Anesthesiology Pain Medicine | DX: M54.50 Low back pain, unspecified (principal); G89.29 Other chronic pain | CPT/HCPCS: 97110 ==

== ENCOUNTER → 2023-04-06 11:10 | Outpatient (BNVA) | payer MEDICARE, OTHER, SELFPAY | PROVIDERS: PCP Family Medicine; Visit Provider Internal Medicine Cardiovascular Disease | DX: R42 Dizziness and giddiness (principal); I48.91 Unspecified atrial fibrillation | CPT/HCPCS: 93005; 99214 ==

== ENCOUNTER → 2023-04-07 08:16 | Outpatient (BNVA) | payer MEDICARE, OTHER, SELFPAY | PROVIDERS: PCP Family Medicine; Visit Provider Family Medicine | DX: E87.6 Hypokalemia (principal) | CPT/HCPCS: 80048 ==

== ENCOUNTER 2023-04-16 06:00 | Outpatient (RCR) | payer MEDICARE, OTHER, SELFPAY | END 2023-04-22 23:59 | disposition home or self-care (01) | LOC: SPT 06:00 | PROVIDERS: PCP Family Medicine; Visit Provider Anesthesiology Pain Medicine | DX: M54.50 Low back pain, unspecified (principal); G89.29 Other chronic pain | CPT/HCPCS: 97110 ==

== ENCOUNTER → 2023-05-12 13:41 | Outpatient (BNVA) | payer MEDICARE, OTHER, SELFPAY | PROVIDERS: PCP Family Medicine; Referring Provider Dermatology; Visit Provider Student in an Organized Health Care Education/Training Program | DX: M17.0 Bilateral primary osteoarthritis of knee | CPT/HCPCS: 73560; 73565; 99204 ==

== ENCOUNTER → 2023-06-24 09:36 | Outpatient (BNVA) | payer MEDICARE, OTHER, SELFPAY | PROVIDERS: PCP Family Medicine; Visit Provider Student in an Organized Health Care Education/Training Program | DX: M17.0 Bilateral primary osteoarthritis of knee (principal) | CPT/HCPCS: 20610; 99213; J7318 ==

== ENCOUNTER → 2023-08-02 13:56 | Outpatient (BNVA) | payer MEDICARE, OTHER, SELFPAY | PROVIDERS: PCP Family Medicine; Visit Provider Family Medicine | DX: D12.8 Benign neoplasm of rectum (principal); M51.36 Other intervertebral disc degeneration, lumbar region; E78.5 Hyperlipidemia, unspecified; I48.91 Unspecified atrial fibrillation; I10 Essential (primary) hypertension; R73.9 Hyperglycemia, unspecified | CPT/HCPCS: 80053; 80061; 83036; 83880; 85025 ==

== ENCOUNTER → 2023-09-26 10:42 | Outpatient (BNVA) | payer MEDICARE, OTHER, SELFPAY | PROVIDERS: PCP Family Medicine; Visit Provider Internal Medicine Cardiovascular Disease | DX: R60.9 Edema, unspecified (principal); G47.33 Obstructive sleep apnea (adult) (pediatric); R00.2 Palpitations; E78.2 Mixed hyperlipidemia; I48.20 Chronic atrial fibrillation, unspecified; Z87.891 Personal history of nicotine dependence | CPT/HCPCS: 99214 ==

== ENCOUNTER 2023-10-13 10:23 | Outpatient (CLI) | payer MEDICARE, OTHER, SELFPAY ==
--- NOTE | 2023-10-13 10:45 | USCV_ITS ---
Orin Elliott Age: 78 Gender: M : 1945 Exam Date: 10/13/2023 10:56 Ordering Phys: Saravanan Carroll MD ([email or web address]) Technologist: Ary Pearce [place] [facility] [place]: edema BP: 134 / 72 HR: 67 Rhythm: Atrial fibrillation Technical Quality: Adequate MEASUREMENTS (Male / Female) Normal Values 2D ECHO LV Diastolic Diameter PLAX 4.0 cm 4.2 - 5.9 / 3.9 - 5.3 cm LV Systolic Diameter PLAX 2.6 cm IVS Diastolic Thickness 1.9 cm 0.6 - 1.0 / 0.6 - 0.9 cm IVS Systolic Thickness 2.4 cm LVPW Diastolic Thickness 1.8 cm 0.6 - 1.0 / 0.6 - 0.9 cm LVPW Systolic Thickness 2.4 cm LVOT Diameter 2.0 cm LV Ejection Fraction 2D Teich 65.1 % LV Ejection Fraction MOD 2C 65.5 % LV Ejection Fraction 2C AL 65.7 % LA Diameter 5.9 cm LA Width 5.5 cm LA Height 6.5 cm RA Width 3.7 cm RA Height 6.3 cm Aorta at Sinotubular Diameter 3.2 cm IVC Diameter 2.0 cm M-MODE Aortic Annulus Diameter 3.8 cm LA Ao Ratio MM 1.6 MV E Point Septal Separation 0.6 cm DOPPLER AV Peak Velocity 120.0 cm/s LVOT Peak Velocity 94.0 cm/s AV Area Cont Eq vti 2.6 cm squared AV Area Cont Eq pk 2.5 cm squared MV Peak Velocity 117.0 cm/s MV Area PHT 3.0 cm squared Mitral E to A Ratio 8.3 MV E' Velocity 56.5 cm/s Mitral E to MV E' Ratio 8.1 Mitral E to LV E' Lateral Ratio 7.5 Mitral E to LV E' Septal Ratio 8.8 TR Peak Velocity 180.5 cm/s TR Peak Gradient 13.0 mmHg Right Atrial Pressure 5.0 mmHg Pulmonary Artery Systolic Pressu 18.0 mmHg PV Peak Velocity 84.0 cm/s RV Acceleration Time 0.1 s RV Ejection Time 0.3 s RV AcT/ET 0.4 FINDINGS Left Ventricle Left ventricle is normal in size. LV systolic function is normal with EF of 60 to 65%. No regional wall motion abnormalities are seen. Right Ventricle Normal in size and function Right Atrium Dilated Left Atrium Severely dilated Mitral Valve Mitral valve is thickened. Mild mitral regurgitation Aortic Valve Aortic valve is thickened. No significant stenosis or regurgitation seen. Tricuspid Valve Mild tricuspid regurgitation. Pulmonary artery systolic pressure is normal. Pulmonic Valve Not well-visualized Pericardium Normal Aorta Normal in size IVC Not well-visualized CONCLUSIONS Technically limited quality echocardiogram because of poor ultrasonic windows. LV systolic function is normal with EF of 60 to 65%. Biatrial enlargement. Mild mitral regurgitation Mild tricuspid regurgitation Compared to prior echocardiogram from 2019, no significant changes are seen. Beto Nowak MD (Electronically Signed) Final Date: 20 October 2023 18:11 S
== END 2023-10-13 10:24 | disposition home or self-care (01) ==
LOC: RAD 10:23
PROVIDERS: PCP Family Medicine; Visit Provider Internal Medicine Cardiovascular Disease
DX: R60.9 Edema, unspecified (principal); I08.1 Rheumatic disorders of both mitral and tricuspid valves
CPT/HCPCS: 93306

== ENCOUNTER → 2023-12-20 09:32 | Outpatient (BNVA) | payer MEDICARE, OTHER, SELFPAY | PROVIDERS: PCP Family Medicine; Visit Provider Student in an Organized Health Care Education/Training Program | DX: M17.0 Bilateral primary osteoarthritis of knee (principal) | CPT/HCPCS: 99213 ==

== ENCOUNTER → 2024-01-09 15:33 | Outpatient (BNVA) | payer MEDICARE, OTHER, SELFPAY | PROVIDERS: PCP Family Medicine; Visit Provider Family Medicine | DX: M54.2 Cervicalgia (principal); M54.9 Dorsalgia, unspecified; G89.29 Other chronic pain; M48.02 Spinal stenosis, cervical region; I10 Essential (primary) hypertension; I48.20 Chronic atrial fibrillation, unspecified | CPT/HCPCS: 80053; 85025 ==

== ENCOUNTER → 2024-01-31 10:13 | Outpatient (BNVA) | payer MEDICARE, OTHER, SELFPAY | PROVIDERS: PCP Family Medicine; Referring Provider Family Medicine; Visit Provider Anesthesiology Pain Medicine | DX: M47.892 Other spondylosis, cervical region (principal); G89.29 Other chronic pain; M48.062 Spinal stenosis, lumbar region with neurogenic claudication; M54.16 Radiculopathy, lumbar region; M51.36 Other intervertebral disc degeneration, lumbar region; M47.816 Spondylosis without myelopathy or radiculopathy, lumbar region | CPT/HCPCS: 72040; 99214 ==

== ENCOUNTER → 2024-02-08 14:08 | Outpatient (BNVA) | payer MEDICARE, OTHER, SELFPAY | PROVIDERS: PCP Family Medicine; Visit Provider Anesthesiology Pain Medicine | DX: M79.2 Neuralgia and neuritis, unspecified (principal); M54.81 Occipital neuralgia; G89.29 Other chronic pain; M48.062 Spinal stenosis, lumbar region with neurogenic claudication; M51.36 Other intervertebral disc degeneration, lumbar region; M47.816 Spondylosis without myelopathy or radiculopathy, lumbar region | CPT/HCPCS: 64405; 99214; J1010; J3490 ==

== ENCOUNTER → 2024-03-13 09:00 | Outpatient (BNVA) | payer MEDICARE, OTHER, SELFPAY | PROVIDERS: PCP Family Medicine; Visit Provider Anesthesiology Pain Medicine | DX: M54.81 Occipital neuralgia (principal); G89.29 Other chronic pain; M47.812 Spondylosis without myelopathy or radiculopathy, cervical region; M48.062 Spinal stenosis, lumbar region with neurogenic claudication; M54.16 Radiculopathy, lumbar region; M51.36 Other intervertebral disc degeneration, lumbar region; M47.816 Spondylosis without myelopathy or radiculopathy, lumbar region | CPT/HCPCS: 64405; 99214; J1010; J3490 ==

== ENCOUNTER → 2024-03-29 13:23 | Outpatient (BNVA) | payer MEDICARE, OTHER, SELFPAY | PROVIDERS: PCP Family Medicine; Visit Provider Family Medicine | DX: R35.1 Nocturia (principal) | CPT/HCPCS: 84153 ==

== ENCOUNTER → 2024-04-06 10:05 | Outpatient (BNVA) | payer MEDICARE, OTHER, SELFPAY | PROVIDERS: PCP Family Medicine; Visit Provider Internal Medicine Cardiovascular Disease | DX: I48.20 Chronic atrial fibrillation, unspecified (principal); I10 Essential (primary) hypertension; E78.2 Mixed hyperlipidemia; R00.2 Palpitations; G47.33 Obstructive sleep apnea (adult) (pediatric) | CPT/HCPCS: 99213 ==

== ENCOUNTER → 2024-04-10 10:37 | Outpatient (BNVA) | payer MEDICARE, OTHER, SELFPAY | PROVIDERS: PCP Family Medicine; Visit Provider Physician Assistant | DX: M17.0 Bilateral primary osteoarthritis of knee (principal) | CPT/HCPCS: 20610; 99213; J7318 ==

== ENCOUNTER → 2024-07-23 16:14 | Outpatient (BNVA) | payer MEDICARE, OTHER, SELFPAY | PROVIDERS: PCP Family Medicine; Visit Provider Family Medicine | DX: I48.20 Chronic atrial fibrillation, unspecified (principal); R61 Generalized hyperhidrosis; E11.9 Type 2 diabetes mellitus without complications | CPT/HCPCS: 80053; 80162; 83735; 83880; 84443; 85025; 86140 ==

== ENCOUNTER → 2024-07-31 12:19 | Outpatient (BNVA) | payer MEDICARE, OTHER, SELFPAY | PROVIDERS: PCP Family Medicine; Visit Provider Family Medicine | DX: E87.1 Hypo-osmolality and hyponatremia (principal) | CPT/HCPCS: 80048 ==

== ENCOUNTER 2024-09-25 13:23 | Outpatient (CLI) | payer MEDICARE, OTHER, SELFPAY ==
--- NOTE | 2024-09-25 14:00 | CT_ITS ---
WS: [id number] CT HEAD TECHNIQUE: Noncontrast and contrast-enhanced CT of the head. CLINICAL INFORMATION: headache COMPARISON: MRI 2009 DLP: 1088.[address] scans at [facility] use at least one of these dose optimization techniques: automated e xposure control; mA and/or kV adjustment per patient size (includes targeted exams where dose is matc hed to clinical indication); or iterative reconstruction. FINDINGS: No evidence of intracranial hemorrhage or mass effect. Mild small vessel changes. Moderate parenchyma l volume loss. Volume loss worse in the frontal lobes. 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 Vascular calcification. No abnormal intracranial enhancement. Small amount of fluid in the sphenoid sinus. Mild mucosal thick ening ethmoid air cells. Mastoid air cells are well aerated. CT/CT head wo/w con [id number] IMPRESSION: 1. Small vessel changes with moderate parenchymal volume loss worse in the fro ntal lobes. This is progressed compared to 2009. 2. No abnormal intracranial enhancement. 3. 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 4. Trace sphenoid sinusitis.
--- NOTE | 2024-09-25 14:30 | CT_ITS ---
WS: [id number] CT CERVICAL SPINE HISTORY: neck pain TECHNIQUE: Contiguous 2.0 mm axial imaging performed through the entire cervical spine. Sagittal and coronal reformats also performed. All CT scans at [facility] use at least one of these dose o ptimization techniques: automated exposure control; mA and/or kV adjustment per patient size (include s targeted exams where dose is matched to clinical indication); or iterative reconstruction. DLP: 427.17 mGy.cm COMPARISON: Radiograph 01/31/2024 Degenerative curvature and increase in cervical lordosis. C3 retrolisthesis by 3 mm. C5 anterolisthes is by 3 mm. Severe degenerative disc space narrowing at C6-7, C7-T1 and T1-2. Facet joints are narrow ed. Lateral masses are aligned the odontoid is intact. Craniocervical junction is normal. Unfused posterior ring of C1. C2-C3: Small central disc protrusion. Mild osteophytic ridging, advanced facet arthropathy and forami nal narrowing. C3-C4: Osteophytic ridging with bilateral facet arthritis. Mild central and bilateral foraminal steno sis. C4-C5: Marked facet joint arthritis. Moderate osteophytic ridging. Moderate LEFT foraminal stenosis. C5-C6: Marked bilateral facet joint arthritis. Moderate bilateral foraminal stenosis. C6-C7: Large osteophyte from the central disc encroaching upon the ventral thecal sac. Mild central a nd foraminal stenosis. C7-T1: Mild osteophytic ridging. Soft tissues are normal. Lung apices are clear. CT/CT cervical spin wo con* [id number] IMPRESSION: 1. Advanced cervical spondylosis with multiple levels of stenoses and facet juan luis int arthropathy. 2. 3 mm retrolisthesis of C3 and anterolisthesis of C5. 3. Severe degenerative disc disease at C6-7, C7-T1 and T1-2. 4. Moderate bilateral foraminal stenosis at C5-6 and on the LEFT at C4-5. 5. Mild central and bilateral foraminal stenosis at C3-4 and C6-7.
[2024-09-25 14:47] LABS: Blood Urea Nitrogen 18 mg/dL (8-23)
--- NOTE | 2024-09-25 15:00 | CT_ITS ---
WS: [id number] CT ABDOMEN AND PELVIS WITH CONTRAST HISTORY: abdominal pain, pain for 10 years, constipation. TECHNIQUE: Imaging performed of the abdomen and pelvis with IV contrast. Single phase imaging of the abdomen. Coronal and sagittal reformats are submitted. All CT scans at [facility] use at [address] one of these dose optimization techniques: automated exposure control; mA and/or kV adjustment per patient size (includes targeted exams where dose is matched to clinical indication); or iterative re construction. IV CONTRAST: Omnipaque 350; 100 mL IV. Oral contrast: Yes. DLP: 1008.41 mGy.cm COMPARISON: 08/19/2015 Lower thorax: Lung bases are clear. Very mild cardiomegaly. Greatest involving the LEFT heart. Small hiatal hernia. Liver/biliary system: Normal size liver with scattered hepatic cysts which have been previously descr ibed. Some of these are too small to characterize. Majority of these have been present on the prior s tudies. No solid mass or abnormal enhancement. Normal common bile duct and portal vein. Gallbladder: Normal. No gallstones or wall thickening. No pericholecystic fluid. Pancreas: Normal size pancreas and pancreatic duct. No adjacent inflammation. Spleen: Normal size spleen. No mass or infarct. Adrenal glands: RIGHT adrenal mass measures 1.9 x 1.4 cm. This mass has slightly increased in size si nce 2014. Probably representing an adenoma. LEFT adrenal gland is negative. Right kidney: Negative. Left kidney: Negative. Aorta: Mild atherosclerosis with no aneurysm. Lymphadenopathy: None. Free fluid: None. GI tract: No GI tract obstruction. Prior appendectomy. No colitis. No significant diverticular diseas e. Abdominal wall: Unremarkable abdominal wall. No hernia. Pelvis: Enlarged heterogeneous prostate gland encroaching into the base of the urinary bladder. No ad enopathy or ascites. Bones: Moderate degenerative changes throughout the lower thoracic and entire lumbar spine. Prior spring tebroplasty at L1. Advanced degenerative disc disease in the lumbar spine. CT/CT abdomen pelvis w con* [id number] IMPRESSION: 1. No acute abdominal or pelvic abnormalities. 2. Stable hepatic cysts. 3. Slight increase in size of the RIGHT adrenal mass since 2014. This may be a n adenoma. With no prior history of malignancy statistically this is a benign a denoma. 4. Prior appendectomy. 5. No GI tract obstruction or colitis. 6. Prostate gland enlargement. 7. No ascites or adenopathy. 8. Advanced degenerative disc disease and scoliosis in the lumbar spine. Prior L1 vertebroplasty.
== END 2024-09-25 13:24 | disposition home or self-care (01) ==
LOC: RAD 13:24
PROVIDERS: PCP Family Medicine; Visit Provider Family Medicine
DX: I67.89 Other cerebrovascular disease (principal); Q44.6 Cystic disease of liver; K44.9 Diaphragmatic hernia without obstruction or gangrene; D35.01 Benign neoplasm of right adrenal gland; N40.0 Benign prostatic hyperplasia without lower urinary tract symptoms; M51.34 Other intervertebral disc degeneration, thoracic region; M50.20 Other cervical disc displacement, unspecified cervical region; M47.892 Other spondylosis, cervical region; M25.78 Osteophyte, vertebrae; M43.12 Spondylolisthesis, cervical region; M99.61 Osseous and subluxation stenosis of intervertebral foramina of cervical region; Z90.49 Acquired absence of other specified parts of digestive tract; R10.9 Unspecified abdominal pain; R51.9 Headache, unspecified
CPT/HCPCS: 70470; 72125; 74177; 82565; 84520; Q9967

== ENCOUNTER → 2024-10-31 12:44 | Outpatient (BNVA) | payer MEDICARE, OTHER, SELFPAY | PROVIDERS: PCP Family Medicine; Visit Provider Internal Medicine Cardiovascular Disease | DX: I48.20 Chronic atrial fibrillation, unspecified (principal); I10 Essential (primary) hypertension; Z87.891 Personal history of nicotine dependence | CPT/HCPCS: 99214 ==

== ENCOUNTER → 2024-11-05 09:28 | Outpatient (BNVA) | payer MEDICARE, OTHER, SELFPAY | PROVIDERS: PCP Family Medicine; Visit Provider Anesthesiology Pain Medicine | DX: M54.2 Cervicalgia (principal); G89.29 Other chronic pain; M48.062 Spinal stenosis, lumbar region with neurogenic claudication; M54.16 Radiculopathy, lumbar region; M47.816 Spondylosis without myelopathy or radiculopathy, lumbar region | CPT/HCPCS: 99214 ==

== ENCOUNTER → 2025-01-08 13:41 | Outpatient (BNVA) | payer MEDICARE, OTHER, SELFPAY | PROVIDERS: PCP Family Medicine; Visit Provider Anesthesiology Pain Medicine | DX: M47.816 Spondylosis without myelopathy or radiculopathy, lumbar region (principal); M54.2 Cervicalgia; M54.9 Dorsalgia, unspecified; G89.29 Other chronic pain | CPT/HCPCS: 64635; 64636; J1010; J9999 ==

== ENCOUNTER → 2025-01-09 08:23 | Outpatient (BNVA) | payer MEDICARE, OTHER, SELFPAY | PROVIDERS: PCP Family Medicine; Visit Provider Physician Assistant | DX: M17.11 Unilateral primary osteoarthritis, right knee (principal); M17.12 Unilateral primary osteoarthritis, left knee | CPT/HCPCS: 20610; 99213; J7318 ==

== ENCOUNTER → 2025-01-21 10:32 | Outpatient (BNVA) | payer MEDICARE, OTHER, SELFPAY | PROVIDERS: PCP Family Medicine; Visit Provider Anesthesiology Pain Medicine | DX: M54.2 Cervicalgia (principal); M54.9 Dorsalgia, unspecified; G89.29 Other chronic pain; M48.062 Spinal stenosis, lumbar region with neurogenic claudication; M54.16 Radiculopathy, lumbar region; M47.816 Spondylosis without myelopathy or radiculopathy, lumbar region; Z87.891 Personal history of nicotine dependence | CPT/HCPCS: 99214 ==

== ENCOUNTER 2025-01-30 15:42 | Outpatient (CLI) | payer MEDICARE, OTHER, SELFPAY ==
--- NOTE | 2025-01-30 16:15 | USCV_ITS ---
Orni Elliott Age: 79 Gender: M : 1945 Exam Date: 01/30/2025 15:56 Ordering Phys: Heber Buchanan MD Technologist: USR Exam Location: [facility] [place] Indication: left leg pain HISTORY: left lower extremity pain PROCEDURES: Venous duplex imaging was performed in only the left lower extremity. The following venous structures were evaluated: common femoral vein, profunda vein, proximal portion of the greater saphenous vein, superficial femoral vein, and the popliteal vein. In addition, the posterior tibial and peroneal trunk were evaluated. FINDINGS: Normal 2-D Doppler and augmentation and compressibility throughout the lower extremity venous structures. Additional imaging through the proximal calf veins also reveals no thrombus. Limited evaluation of the greater saphenous vein is patent with no thrombus. CONCLUSIONS No DVT left lower extremity. Dr. Cira Lee DO (Electronically Signed) Final Date: 31 January 2025 07:33 S
== END 2025-01-30 15:43 | disposition home or self-care (01) ==
PROVIDERS: PCP Family Medicine; Visit Provider Family Medicine
DX: M79.89 Other specified soft tissue disorders (principal)
CPT/HCPCS: 93971

== ENCOUNTER → 2025-06-05 16:21 | Outpatient (BNVA) | payer MEDICARE, OTHER, SELFPAY | PROVIDERS: PCP Family Medicine; Visit Provider Internal Medicine Cardiovascular Disease | DX: I48.91 Unspecified atrial fibrillation (principal); I10 Essential (primary) hypertension; Z01.810 Encounter for preprocedural cardiovascular examination; Z87.891 Personal history of nicotine dependence; R07.9 Chest pain, unspecified | CPT/HCPCS: 99214 ==

== ENCOUNTER 2025-06-11 08:10 | Outpatient (CLI) | payer MEDICARE, OTHER, SELFPAY ==
[2025-06-11 08:42] VITALS: BMI 39.4
--- NOTE | 2025-06-11 08:42 | ECG_ITS ---
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 Interpretive Statements Procedure: At the baseline, the blood pressure was 160/90 with a heart rate of 77. The baseline EKG showed atrial fibrillation with mild nonspecific ST-T wave abnormality. The Lexiscan was infused over a period of 20 seconds at a total dose of 0.4 mg. The stress Face was continued for total of 5 minutes. . At the end of the stress phase, the blood pressure was 143/78 with heart rate of 92 bpm. The EKG at peak infusion revealed no significant ST/T wave changes compared to the resting EKG. Sestamibi was injected 20 seconds after the Lexiscan infusion. At the end of recovery, the blood pressure was 140/82 heart rate of 78 bpm. Conclusion: 1. Normal EKG response to Lexiscan infusion 2. No Lexiscan induced chest pain or cardiac arrhythmia. 3. Normal blood pressure and heart rate response. 4. Nuclear myocardial perfusion scan pending; see separate report. Electronically Signed On 06-11-2025 22:53:36 CDT by Te Pruitt M.D. [email or web address]
--- NOTE | 2025-06-11 08:43 | NMCV_ITS ---
NM jacques perf SPECT r/s* [id number] Orin Elliott Age: 80 Gender: M : 1945 Exam Date: 06/11/2025 09:34 Ordering Phys: Aaron Dee MD ([email or web address]) Technologist: LANDON Malloy Exam Location: [facility] Indications: CP STRESS TEST Please see separate stress test report in [facility] for full findings IMAGE PROTOCOL Rest/Stress 1 Lexiscan Day Radiopharmaceutical Dose (mCi) Administration Site Administered by Rest: Tc-99m 10.8 IV Josiane Nesbitt LEAD ANDROID DEVELOPER Sestamibi Stress:Tc-99m 32.8 IV Josiane Nesbitt, LEAD ANDROID DEVELOPER Sestamibi Rest: 11-Jun-2025 60 Discovery 630 Stress: 11-Jun-2025 0 Discovery 630 0.4mg Lexiscan. Images obtained in supine and prone position. SPECT RESULTS Technical Quality: Good Raw Data Analysis: Normal Image Corrections: No attenuation or motion correction applied Summed Stress Score: 0 Summed Rest Score: 0 Summed Difference Score: 0 PERFUSION FINDINGS SPECT images demonstrate homogeneous tracer distribution throughout the myocardium. FUNCTIONAL RESULTS (calculated via Gated SPECT) Stress Image LV EF (%): 83 Stress EDV (mL):106 TID: 1.06 Stress ESV (mL):18 FUNCTIONAL FINDINGS: There is normal left ventricular systolic function. EF 83%. IMPRESSIONS Myocardial perfusion imaging is normal. Normal left ventricular size and function, EF 83%. Te Pruitt MD, FACC (Electronically Signed) Final Date: 11 June 2025 11:57 S
[2025-06-11 10:24] VITALS: BP 140/82; PULSE 85
== END 2025-06-11 08:11 | disposition home or self-care (01) ==
PROVIDERS: PCP Family Medicine; Visit Provider Internal Medicine Cardiovascular Disease
DX: R07.9 Chest pain, unspecified (principal)
CPT/HCPCS: 36415; 78452; 93017; 96374; A9500; J2785

== ENCOUNTER → 2025-07-16 08:24 | Outpatient (BNVA) | payer MEDICARE, OTHER, SELFPAY | PROVIDERS: PCP Family Medicine; Visit Provider Physician Assistant | DX: M17.11 Unilateral primary osteoarthritis, right knee (principal); M17.12 Unilateral primary osteoarthritis, left knee | CPT/HCPCS: 20610; 99213; J7318 ==

== ENCOUNTER 2025-09-26 13:41 | Outpatient (CLI) | payer MEDICARE, OTHER, SELFPAY ==
--- NOTE | 2025-09-26 14:27 | XR_ITS ---
WS: [id number] XR chest 2V* [id number] REASON FOR EXAM: dyspnea FINDINGS: The chest is similar to 02/14/2017. Moderate tortuosity and mild ectasia of the thoracic aorta with normal heart size. Calcified granulomatous disease bilaterally. No acute pulmonary parenchymal or pleural abnormality. Eventration of the right hemidiaphragm. Significant compression deformities and vertebroplasty at the thoracolumbar junction. XR/XR chest 2V* [id number] IMPRESSION: Stable chest without acute abnormality.
== END 2025-09-26 13:42 | disposition home or self-care (01) ==
PROVIDERS: PCP Family Medicine; Visit Provider Family Medicine
DX: I10 Essential (primary) hypertension (principal); I48.20 Chronic atrial fibrillation, unspecified; R09.81 Nasal congestion; R06.00 Dyspnea, unspecified; I77.810 Thoracic aortic ectasia; I77.89 Other specified disorders of arteries and arterioles
CPT/HCPCS: 71046; 80053; 82607; 83880; 84443; 85025; 86140

== ENCOUNTER → 2025-10-14 16:40 | Outpatient (BNVA) | payer MEDICARE, OTHER, SELFPAY | PROVIDERS: PCP Family Medicine; Visit Provider Family Medicine | DX: R06.00 Dyspnea, unspecified (principal); J06.9 Acute upper respiratory infection, unspecified | CPT/HCPCS: 87400; 87426 ==